=== PATIENT | female | born 1980 | race Caucasian/White ===

== ENCOUNTER 2025-03-07 20:58 | Emergency (ER) | payer OTHER ==
[~2025-03-07] VITALS: Ht 160 cm; Wt 115.0 kg
[2025-03-07] MEDS ORDERED: MORPHINE SULFATE 4 MG/ML VIAL IV ONE (21:15)
[2025-03-07] MEDS ORDERED: SODIUM CHLORIDE 0.9% 1,000 ML IV ONE (21:15)
[2025-03-07 21:36] LABS: BASOPHILS 0.5 % (0.1-1.2); EOSINOPHILS 1.3 % (0.7-5.8); LYMPHOCYTES 28.6 % (19.3-51.7); MCH 28.0 PG (25.6-32.2); MCHC 32.8 g/dL (32.2-35.5); MCV 85.4 fL (79.4-94.8); MONOCYTES 6.0 % (4.7-12.5); NEUTROPHILS 63.0 % (34.0-71.1); RBC 4.71 M/uL (3.93-5.22)
[2025-03-07 21:59] LABS: ALT (SGPT) 29.0 U/L (14-59); AST (SGOT) 13.0 U/L (15-37); GLOMERULAR FILTRATION RATE,EST 76.0 mL/min (>60); PROTEIN, TOTAL 8.0 g/dL (6.4-8.2); UREA NITROGEN 10.0 mg/dL (7-18)
[2025-03-07 22:03] LABS: BLOOD/HGB, URINE TRACE-L (Negative); KETONE, URINE TRACE (Negative); LEUK ESTERASE, URINE NEGATIVE (negative); NITRITE, URINE NEGATIVE (negative)
[2025-03-07 22:27] LABS: CRYSTALS, URINE NONE SEEN (0-1+); EPITHELIAL CELLS, URINE SQUAMOUS 2+ /lpf (0-1+)
[2025-03-07 22:28] LABS: BACTERIA, URINE 1+ /hpf (negative); CASTS, URINE NONE SEEN \\lpf; REFLEX CULTURE, URINE No (No)
[2025-03-07] MEDS ORDERED: TRAMADOL HCL50 MG PO (23:09)
[2025-03-07] MEDS ORDERED: ONDANSETRON ODT8 MG PO (23:09)
[2025-03-07] MEDS ORDERED: KETOROLAC TROMETHAMINE 30 MG/ML VIAL IV ONE (23:30)
[2025-03-07] MEDS ORDERED: HYDROCODON-ACE1 EA10 PO (23:36)
[2025-03-07] MEDS ORDERED: HYDROCODONE BIT/ACETAMINOPHEN 5/325 MG 1 TAB HOME.PACK PO ONE (23:45)
[2025-03-08 00:09] VITALS: BP 113/71
== END 2025-03-08 00:09 | disposition home or self-care (01) ==
LOC: ED 20:58
PROVIDERS: Family Medicine
DX: N83.202 Unspecified ovarian cyst, left side (principal); Z91.041 Radiographic dye allergy status; Z88.8 Allergy status to other drugs, medicaments and biological substances
CPT/HCPCS: 36415; 74176; 80053; 81001; 83690; 85025; 96374; 96375; 99284-25; A9270; J1885; J2270; J2405; J7030